=== PATIENT | female | born 1960 | race Caucasian/White ===

== ENCOUNTER 2018-08-15 14:52 | Observation (INO) | payer MEDICAID ==
[~2018-08-15] VITALS: Ht 154.9 cm; Wt 99.0 kg
[~2018-08-15 14:52] MED LIST: CARB200T4 PO; CHOL200052 PO; DOCU-193 PO; HYDR-3307 PO; IBUP-1222 PO; LISI2.5T PO; LORA10TA3 PO; MELO15TA24 PO; METF500T17 PO; PRAV20TA2 PO
[2018-08-15] MEDS ORDERED: LORazepam 1MG TABLET ONE (15:19)
[2018-08-15] MEDS ORDERED: LORazepam 1MG TABLET PO ONE (15:30)
[2018-08-15 15:34] LABS: BASOPHILS # (AUTO) 0.03 x10^3/uL (0-0.1); BASOPHILS % (AUTO) 0 % (0-1); EOSINOPHILS # (AUTO) 0.42 x10^3/uL (0-0.4); EOSINOPHILS % (AUTO) 6 % (1-7); LYMPHOCYTES # (AUTO) 2.25 x10^3/uL (1-3.4); LYMPHOCYTES % (AUTO) 32 % (22-44); MD NO; MEAN CORPUSCULAR HEMOGLOBIN 30.6 pg (27.0-34.8); MEAN CORPUSCULAR HGB CONC 33.5 g/dL (32.4-35.8); MEAN CORPUSCULAR VOLUME 91.3 fL (80-100); MEAN PLATELET VOLUME 8.5 fL (7.4-10.4); MONOCYTES # (AUTO) 0.52 x10^3/uL (0.2-0.8); MONOCYTES % (AUTO) 7 % (2-9); NEUTROPHILS # (AUTO) 3.77 x10^3/uL (1.8-6.8); NEUTROPHILS % (AUTO) 54 % (42-75); PLATELET COUNT 305 x10^3/uL (130-400); RED CELL DISTRIBUTION WIDTH 13.4 % (9.6-15.2)
[2018-08-15 15:49] LABS: ALBUMIN 3.3 g/dL (3.4-5.0); ANION GAP 9 mmol/L (5-15); CALCIUM 8.7 mg/dL (8.5-10.1); CHLORIDE 107 mmol/L (98-107); CREATININE 0.68 mg/dL (0.55-1.02)
[2018-08-15] MEDS ORDERED: ASPIRIN 325 MG TABLET EC ONE (17:48)
[2018-08-15] MEDS ORDERED: DIPHENHYDRAMINE 25 MG CAPSULE PO PRN (18:00)
[2018-08-15] MEDS ORDERED: DOCUSATE 100 MG CAPSULE PO PRN ×2 (18:00→18:30)
[2018-08-15] MEDS ORDERED: ASPIRIN 325 MG TABLET EC PO ONE (18:00)
[2018-08-15] MEDS ORDERED: LABETALOL 5MG/ML, 20ML IVPush PRN (18:00)
[2018-08-15] MEDS ORDERED: POLYETHYLENE GLYCOL 17 GM PACKET PO PRN (18:00)
[2018-08-15] MEDS ORDERED: ACETAMINOPHEN 325 MG TABLET PO PRN (18:00)
[2018-08-15] MEDS ORDERED: hydrALAzine 20 MG/ML, 1ML IVPush PRN (18:00)
[2018-08-15] MEDS ORDERED: BISACODYL 10 MG SUPP PR PRN (18:00)
[2018-08-15] MEDS ORDERED: GLUCAGON 1 MG IM PRN (18:30)
[2018-08-15] MEDS ORDERED: NITROGLYCERIN 0.4 MG/SPRAY SL PRN (18:30)
[2018-08-15] MEDS ORDERED: DEXTROSE 50%, 50ML SYRINGE IVPush PRN (18:30)
[2018-08-15] MEDS ORDERED: DEXTROSE 4 GM TAB.CHEW PO PRN (18:30)
[2018-08-15 18:31] LABS: HEMOGLOBIN A1C 7.4 % (4.2-6.3)
[2018-08-15 18:48] LABS: TROPONIN I < 0.015 ng/mL (0.000-0.045)
[2018-08-15 20:19] VITALS: BP 127/85
[2018-08-15] MEDS ORDERED: PRAVASTATIN 20 MG TABLET PO SCH (21:00)
[2018-08-15] MEDS: SODIUM CHLORIDE FLUSH 10ML SYR IVF SCH (21:00)
[2018-08-15] MEDS ORDERED: CARBAMAZEPINE 200 MG TABLET PO SCH (21:00)
[2018-08-15] MEDS: INSULIN LISPRO 100 UNITS/ML, PEN SQ-INSULIN SCH (23:30)
[2018-08-15] MEDS: HYDROcodone/APAP 10/325 MG TABLET PO PRN (23:47)
[2018-08-16 00:16] LABS: TROPONIN I 0.021 ng/mL (0.000-0.045)
[2018-08-16 01:13] VITALS: BP 127/85
[2018-08-16 04:49] LABS: BASOPHILS # (AUTO) 0.04 x10^3/uL (0-0.1); BASOPHILS % (AUTO) 1 % (0-1); EOSINOPHILS # (AUTO) 0.53 x10^3/uL (0-0.4); EOSINOPHILS % (AUTO) 7 % (1-7); LYMPHOCYTES # (AUTO) 3.22 x10^3/uL (1-3.4); LYMPHOCYTES % (AUTO) 44 % (22-44); MD NO; MEAN CORPUSCULAR HEMOGLOBIN 30.3 pg (27.0-34.8); MEAN CORPUSCULAR HGB CONC 33.2 g/dL (32.4-35.8); MEAN CORPUSCULAR VOLUME 91.1 fL (80-100); MEAN PLATELET VOLUME 8.6 fL (7.4-10.4); MONOCYTES # (AUTO) 0.73 x10^3/uL (0.2-0.8); MONOCYTES % (AUTO) 10 % (2-9); NEUTROPHILS # (AUTO) 2.89 x10^3/uL (1.8-6.8); NEUTROPHILS % (AUTO) 39 % (42-75); PLATELET COUNT 274 x10^3/uL (130-400); RED BLOOD COUNT 4.38 x10^6/uL (3.82-5.3); RED CELL DISTRIBUTION WIDTH 13.7 % (9.6-15.2)
[2018-08-16 05:01] LABS: ALBUMIN 2.9 g/dL (3.4-5.0); ANION GAP 7 mmol/L (5-15); CALCIUM 7.6 mg/dL (8.5-10.1); CHLORIDE 108 mmol/L (98-107)
[2018-08-16 05:06] LABS: ALANINE AMINOTRANSFERASE 23 U/L (12-78); ALKALINE PHOSPHATASE 79 U/L (45-117); BILIRUBIN,TOTAL 0.5 mg/dL (0.2-1.0); CHOL/HDL RATIO 3.2; CHOLESTEROL, TOTAL 224 mg/dL (140-239); CREATININE 0.58 mg/dL (0.55-1.02); HDL CHOL % 31 % (28-40); HDL CHOLESTEROL (DIRECT) 69 mg/dL (40-60); LDL CHOLESTEROL,CALCULATED 125 mg/dL (54-169); LDL/HDL RATIO 1.8 (0.5-3.0); TOTAL PROTEIN 7.2 g/dL (6.4-8.2); TRIGLYCERIDES 148 mg/dL (50-200); VLDL CHOLESTEROL 30 mg/dL (0-25)
[2018-08-16] MEDS: HYDROcodone/APAP 10/325 MG TABLET PO PRN (05:53)
[2018-08-16] MEDS: INSULIN LISPRO 100 UNITS/ML, PEN SQ-INSULIN SCH ×3 (07:00→16:00)
[2018-08-16 07:19] VITALS: BP 101/68
[2018-08-16 08:12] LABS: TROPONIN I 0.017 ng/mL (0.000-0.045)
[2018-08-16] MEDS ORDERED: CHOLECALCIFEROL 1,000 UNIT TABLET PO SCH (09:00)
[2018-08-16] MEDS ORDERED: LISINOPRIL 5 MG TABLET PO SCH (09:00)
[2018-08-16] MEDS ORDERED: CETIRIZINE 10 MG TABLET PO SCH (09:00)
[2018-08-16] MEDS ORDERED: LOSARTAN 25MG TABLET PO SCH (09:00)
[2018-08-16] MEDS ORDERED: REGADENOSON 0.4 MG/5 ML SYRINGE ONE ×2 (10:24→12:20)
[2018-08-16] MEDS ORDERED: GADOBUTROL 10 MMOL/10 ML PFS ONE (12:46)
[2018-08-16] MEDS: SODIUM CHLORIDE FLUSH 10ML SYR IVF SCH (13:09)
[2018-08-16 14:22] VITALS: BP 111/75
[2018-08-16] MEDS ORDERED: LOSA25TA2 PO (16:43)
[2018-08-16 21:12] VITALS: BP 117/75
== END 2018-08-16 20:05 | disposition home or self-care (01) ==
LOC: ED 16:36 → INTOOBSV 17:14 → EDIP 17:14 → 5SO 18:15
PROVIDERS: ADMIT Hospitalist; ATTEND Hospitalist
DX: R07.89 Other chest pain (principal); E11.9 Type 2 diabetes mellitus without complications; E78.5 Hyperlipidemia, unspecified; F41.1 Generalized anxiety disorder; G89.29 Other chronic pain; I10 Essential (primary) hypertension; M19.90 Unspecified osteoarthritis, unspecified site; M54.30 Sciatica, unspecified side; Z82.49 Family history of ischemic heart disease and other diseases of the circulatory system; R55 Syncope and collapse; Z79.899 Other long term (current) drug therapy; Z23 Encounter for immunization
CPT/HCPCS: 0399T; 36415; 70553; 71045; 78452; 80048; 80053; 80061; 82040; 82962; 83036; 83735; 84100; 84443; 84484; 85025; 85379; 90471; 90656; 93005; 93017; 93306; 93880; 96372; 99285; A9502; A9585; C9898; G0378; J1815; J2785

== ENCOUNTER 2018-11-20 17:29 | Emergency (ER) | payer MEDICAID ==
[~2018-11-20] VITALS: Ht 154.9 cm; Wt 98.8 kg
[~2018-11-20 17:29] MED LIST changes: +LOSA25TA2 PO
[2018-11-20 17:36] VITALS: BP 128/72
[2018-11-20] MEDS ORDERED: LIDOCAINE-MPF 1%, 5ML ONE (17:49)
[2018-11-20] MEDS ORDERED: LISI-167 PO (17:54)
[2018-11-20] MEDS ORDERED: LIDOCAINE-MPF 1%, 5ML INFIL ONE (18:00)
[2018-11-20] MEDS ORDERED: BACITRACIN ZINC OINT 500U/GM, 0.9 GM ONE (18:42)
[2018-11-20] MEDS ORDERED: IBUPROFEN 200 MG TABLET ONE (18:46)
[2018-11-20] MEDS ORDERED: IBUPROFEN 200 MG TABLET PO ONE (19:00)
== END 2018-11-20 19:12 | disposition home or self-care (01) ==
LOC: ED 18:53
DX: S61.411A Laceration without foreign body of right hand, initial encounter (principal); I10 Essential (primary) hypertension; E11.9 Type 2 diabetes mellitus without complications; E78.5 Hyperlipidemia, unspecified
CPT/HCPCS: 12001; 99283

== ENCOUNTER 2019-09-04 21:18 | Emergency (ER) | payer SELFPAY ==
[~2019-09-04] VITALS: Ht 154.9 cm; Wt 95.0 kg
[~2019-09-04 21:18] MED LIST changes: -HYDR-3307 PO; +HYDR-36 PO; +LISI-167 PO; +LORA-247 PO; -LORA10TA3 PO
[2019-09-04] MEDS ORDERED: DIPHENHYDRAMINE 50 MG/ML, 1ML IVPush ONE (22:00)
[2019-09-04 22:11] LABS: BASOPHILS # (AUTO) 0.03 x10^3/uL (0-0.1); BASOPHILS % (AUTO) 0 % (0-1); EOSINOPHILS # (AUTO) 0.39 x10^3/uL (0-0.4); EOSINOPHILS % (AUTO) 5 % (1-7); LYMPHOCYTES # (AUTO) 2.36 x10^3/uL (1-3.4); LYMPHOCYTES % (AUTO) 30 % (22-44); MD NO; MEAN CORPUSCULAR HEMOGLOBIN 30.9 pg (27.0-34.8); MEAN CORPUSCULAR VOLUME 93.6 fL (80-100); MEAN PLATELET VOLUME 8.6 fL (7.4-10.4); MONOCYTES # (AUTO) 0.61 x10^3/uL (0.2-0.8); MONOCYTES % (AUTO) 8 % (2-9); NEUTROPHILS # (AUTO) 4.44 x10^3/uL (1.8-6.8); NEUTROPHILS % (AUTO) 57 % (42-75); PLATELET COUNT 308 x10^3/uL (130-400); RED BLOOD COUNT 4.52 x10^6/uL (3.82-5.3); RED CELL DISTRIBUTION WIDTH 13.8 % (9.6-15.2)
[2019-09-04] MEDS ORDERED: METHOCARBAMOL 750 MG TABLET ONE (22:14)
[2019-09-04] MEDS ORDERED: DIPHENHYDRAMINE 50 MG/ML, 1ML ONE (22:14)
[2019-09-04] MEDS ORDERED: KETOROLAC 30 MG/1 ML ONE (22:14)
[2019-09-04] MEDS ORDERED: METOCLOPRAMIDE 5 MG/ML, 2ML ONE (22:14)
[2019-09-04 22:22] LABS: ANION GAP 4 mmol/L (5-15); CALCIUM 8.3 mg/dL (8.5-10.1); CHLORIDE 110 mmol/L (98-107); CREATININE 0.67 mg/dL (0.55-1.02)
[2019-09-04] MEDS ORDERED: METOCLOPRAMIDE 5 MG/ML, 2ML IVPush ONE (23:00)
[2019-09-04] MEDS ORDERED: KETOROLAC 30 MG/1 ML IVPush ONE (23:00)
[2019-09-04] MEDS ORDERED: SODIUM CHLORIDE FLUSH 10ML SYR IVF ONE (23:00)
[2019-09-04] MEDS ORDERED: METHOCARBAMOL 750 MG TABLET PO ONE (23:00)
[2019-09-04 23:01] VITALS: BP 91/54
== END 2019-09-04 23:03 | disposition home or self-care (01) ==
LOC: ED 22:07
DX: M54.2 Cervicalgia (principal); G44.201 Tension-type headache, unspecified, intractable; G24.3 Spasmodic torticollis; E11.9 Type 2 diabetes mellitus without complications; E78.5 Hyperlipidemia, unspecified; I10 Essential (primary) hypertension
CPT/HCPCS: 36415; 72125; 80048; 82040; 85025; 93005; 96374; 96375; 99284; J1200; J1885; J2765